=== PATIENT | female | born 1960 | race Caucasian/White ===

== ENCOUNTER 2019-07-18 10:27 | Inpatient (IN) ==
[2019-07-18] MEDS ORDERED: Ondansetron 4 MG/2 ML VIAL IVP PRN (12:44)
[2019-07-18] MEDS ORDERED: Naloxone 0.4 MG/ML INJ IVP PRN ×2 (12:44→12:46)
[2019-07-18] MEDS ORDERED: 0.9 % Sodium Chloride 1,000 ML IVC SCH (12:45)
[2019-07-18] MEDS ORDERED: Potassium Phosphate 44 MEQ in 0.9 % Sodium Chloride 250 ML IVPB PRN (12:58)
[2019-07-18] MEDS ORDERED: Calcium Gluconate 1gm/50mL 1 GM/50 ML BAG IVPB PRN (12:58)
[2019-07-18] MEDS: Thiamine (B-1) 100 MG in 0.9 % Sodium Chloride 50 ML IVPB SCH (14:19)
[2019-07-18 14:25] LABS: BUN/Creatinine Ratio 13 (6-26); Blood Urea Nitrogen 10 mg/dL (6-20); Calcium 8.7 mg/dL (8.6-10.3); Carbon Dioxide 24 mEq/L (23-29); Chloride 73 mEq/L (98-107); Glucose 115 mg/dL (70-105); Osmolality,Calculated 224 (280-300); Potassium 3.7 mEq/L (3.5-5.1); Sodium 107 mEq/L (136-145); eGFR For African Americans > 60 (> 60); eGFR For Non-African Americans > 60 (> 60)
[2019-07-18] MEDS: *HR* Heparin 5,000 UNIT/ML VIAL SQ SCH ×2 (14:32→20:14)
[2019-07-18] MEDS: Folic Acid 1 MG in 0.9 % Sodium Chloride 50 ML IVPB SCH (15:17)
[2019-07-18] MEDS: clonazePAM 0.5 MG TABLET PO SCH ×2 (15:22→20:15)
[2019-07-18 16:07] LABS: Magnesium 1.5 mg/dL (1.6-2.6)
[2019-07-18 16:08] LABS: Creatinine,Urine 39 mg/dL; Sodium, Urine < 10.0 mEq/L
[2019-07-18] MEDS: Ipratropium/Albuterol Neb 3 ML IH SCH ×2 (16:24→21:59)
[2019-07-18] MEDS: Nicotine 21 MG PATCH.TD24 TD SCH (18:33)
[2019-07-18 23:28] LABS: Magnesium 2.3 mg/dL (1.6-2.6); Potassium 3.9 mEq/L (3.5-5.1)
[2019-07-19] MEDS ORDERED: D5% in Water 500 ML IVC SCH ×2 (02:15→06:15)
[2019-07-19 03:15] LABS: Basophils % 0.3 %; Eosinophils # 0.1 K/mcL (0.0-0.6); Hematocrit 30.5 % (35.3-44.9); Hemoglobin 10.7 g/dL (11.5-15.4); Immature Granulocytes % 0.8 % (0-4); Lymphocytes % 13.6 %; Mean Corpuscular HGB Conc 35.1 g/dL (31.6-35.5); Mean Corpuscular Hemoglobin 32.1 pg (28.0-33.3); Mean Corpuscular Volume 91.6 fL (83.0-100.0); Mean Platelet Volume 8.6 fL (9.4-12.4); Monocytes # 0.7 K/mcL (0.0-1.3); Monocytes % 9.7 %; Neutrophils # 5.7 K/mcL (1.6-8.9); Platelet Count 252 K/mcL (140-400); Red Blood Count 3.33 M/mcL (3.82-4.97); Red Cell Distribution Width 12.4 % (11.5-14.5); Segmented Neutrophils % 74.6 %; White Blood Count 7.6 K/mcL (4.3-11.1)
[2019-07-19 03:20] LABS: VBG Ionized Calcium 1.08 mmol/L (1.15-1.35)
[2019-07-19 03:39] LABS: Sodium 116 mEq/L (136-145)
[2019-07-19] MEDS: Ipratropium/Albuterol Neb 3 ML IH SCH ×4 (03:56→22:09)
[2019-07-19 04:17] LABS: BUN/Creatinine Ratio 18 (6-26); Blood Urea Nitrogen 11 mg/dL (6-20); Calcium 8.3 mg/dL (8.6-10.3); Carbon Dioxide 25 mEq/L (23-29); Chloride 88 mEq/L (98-107); Glucose 119 mg/dL (70-105); Osmolality,Calculated 243 (280-300); Phosphorous 3.3 mg/dL (2.7-4.5); Potassium 4.5 mEq/L (3.5-5.1); eGFR For African Americans > 60 (> 60); eGFR For Non-African Americans > 60 (> 60)
[2019-07-19] MEDS: *HR* Heparin 5,000 UNIT/ML VIAL SQ SCH ×3 (04:58→22:40)
[2019-07-19 04:59] LABS: Magnesium 2.2 mg/dL (1.6-2.6)
[2019-07-19] MEDS ORDERED: Perflutren Lipid Microsphere 1.3 ML in 0.9 % Sodium Chloride 8.7 ML IVP ONE (08:39)
[2019-07-19] MEDS ORDERED: lisinopriL 20 MG TABLET PO SCH (09:00)
[2019-07-19] MEDS ORDERED: 0.9 % Sodium Chloride 1,000 ML IVC SCH (09:30)
[2019-07-19] MEDS: Thiamine (B-1) 100 MG in 0.9 % Sodium Chloride 50 ML IVPB SCH (09:33)
[2019-07-19] MEDS: Folic Acid 1 MG in 0.9 % Sodium Chloride 50 ML IVPB SCH (09:34)
[2019-07-19] MEDS: Nicotine 21 MG PATCH.TD24 TD SCH (09:35)
[2019-07-19] MEDS: clonazePAM 0.5 MG TABLET PO SCH ×3 (09:44→20:39)
[2019-07-19 10:28] LABS: Thyroid Stimulating Hormone 0.438 mcIU/mL (0.340-5.600)
[2019-07-19 12:33] LABS: BUN/Creatinine Ratio 17 (6-26); Blood Urea Nitrogen 11 mg/dL (6-20); Calcium 8.2 mg/dL (8.6-10.3); Carbon Dioxide 24 mEq/L (23-29); Chloride 88 mEq/L (98-107); Glucose 119 mg/dL (70-105); Osmolality,Calculated 251 (280-300); Potassium 4.7 mEq/L (3.5-5.1); Sodium 120 mEq/L (136-145); eGFR For African Americans > 60 (> 60); eGFR For Non-African Americans > 60 (> 60)
[2019-07-19 13:15] LABS: Creatinine,Urine 45 mg/dL; Sodium, Urine < 10.0 mEq/L
[2019-07-19] MEDS ORDERED: Thiamine (B-1) 100 MG in 0.9 % Sodium Chloride 50 ML IVPB PRN (16:00)
[2019-07-19] MEDS ORDERED: Folic Acid 1 MG in 0.9 % Sodium Chloride 50 ML IVPB PRN (16:00)
[2019-07-19] MEDS ORDERED: Ondansetron 4 MG/2 ML VIAL IVP PRN (17:44)
[2019-07-19] MEDS ORDERED: Naloxone 0.4 MG/ML INJ IVP PRN (17:44)
[2019-07-19] MEDS ORDERED: D5% in Water 1,000 ML IVC SCH (19:15)
[2019-07-19] MEDS ORDERED: BUDESONIDE IH SCH (21:00)
[2019-07-20] MEDS ORDERED: D5% in Water 500 ML IVC SCH ×2 (00:20→04:14)
[2019-07-20 03:46] LABS: Basophils % 0.3 %; Eosinophils # 0.1 K/mcL (0.0-0.6); Eosinophils % 0.6 %; Hematocrit 26.2 % (35.3-44.9); Immature Granulocytes % 0.9 % (0-4); Lymphocytes # 1.7 K/mcL (0.6-4.6); Lymphocytes % 13.2 %; Mean Corpuscular HGB Conc 34.4 g/dL (31.6-35.5); Mean Corpuscular Hemoglobin 32.1 pg (28.0-33.3); Mean Corpuscular Volume 93.6 fL (83.0-100.0); Mean Platelet Volume 8.7 fL (9.4-12.4); Monocytes # 1.2 K/mcL (0.0-1.3); Monocytes % 9.3 %; Platelet Count 235 K/mcL (140-400); Red Cell Distribution Width 12.8 % (11.5-14.5); Segmented Neutrophils % 75.7 %
[2019-07-20 03:47] LABS: Neutrophils # 9.5 K/mcL (1.6-8.9); White Blood Count 12.6 K/mcL (4.3-11.1)
[2019-07-20 03:52] LABS: Prothrombin Time 11.1 Seconds (9.4-12.1)
[2019-07-20 03:55] LABS: Activated Partial Thrombo Time 30.4 Seconds (26.0-36.0)
[2019-07-20 04:09] LABS: BUN/Creatinine Ratio 21 (6-26); Blood Urea Nitrogen 12 mg/dL (6-20); Carbon Dioxide 25 mEq/L (23-29); Chloride 89 mEq/L (98-107); Glucose 109 mg/dL (70-105); Osmolality,Calculated 250 (280-300); Potassium 4.1 mEq/L (3.5-5.1); Sodium 120 mEq/L (136-145); eGFR For African Americans > 60 (> 60); eGFR For Non-African Americans > 60 (> 60)
[2019-07-20] MEDS: Ipratropium/Albuterol Neb 3 ML IH SCH ×4 (04:33→21:43)
[2019-07-20] MEDS: *HR* Heparin 5,000 UNIT/ML VIAL SQ SCH ×3 (05:57→21:27)
[2019-07-20] MEDS: clonazePAM 0.5 MG TABLET PO SCH ×3 (08:38→21:27)
[2019-07-20] MEDS: Thiamine (B-1) 100 MG TABLET PO SCH (08:38)
[2019-07-20] MEDS: Folic Acid 1 MG TABLET PO SCH (08:39)
[2019-07-20] MEDS: Nicotine 21 MG PATCH.TD24 TD SCH (08:39)
[2019-07-20] MEDS: lisinopriL 20 MG TABLET PO SCH (08:39)
[2019-07-21] MEDS: Ipratropium/Albuterol Neb 3 ML IH SCH ×4 (03:22→22:04)
[2019-07-21 04:28] LABS: Basophils % 0.4 %; Eosinophils # 0.1 K/mcL (0.0-0.6); Eosinophils % 0.9 %; Hematocrit 25.5 % (35.3-44.9); Hemoglobin 8.4 g/dL (11.5-15.4); Lymphocytes # 2.4 K/mcL (0.6-4.6); Lymphocytes % 23.6 %; Mean Corpuscular HGB Conc 32.9 g/dL (31.6-35.5); Mean Corpuscular Hemoglobin 31.7 pg (28.0-33.3); Mean Corpuscular Volume 96.2 fL (83.0-100.0); Mean Platelet Volume 8.5 fL (9.4-12.4); Monocytes % 9.6 %; Neutrophils # 6.7 K/mcL (1.6-8.9); Platelet Count 236 K/mcL (140-400); Red Blood Count 2.65 M/mcL (3.82-4.97); Red Cell Distribution Width 13.2 % (11.5-14.5); Segmented Neutrophils % 64.5 %; White Blood Count 10.3 K/mcL (4.3-11.1)
[2019-07-21 04:45] LABS: Magnesium 1.8 mg/dL (1.6-2.6); Phosphorous 4.2 mg/dL (2.7-4.5)
[2019-07-21 04:47] LABS: BUN/Creatinine Ratio 17 (6-26); Blood Urea Nitrogen 10 mg/dL (6-20); Calcium 8.5 mg/dL (8.6-10.3); Carbon Dioxide 25 mEq/L (23-29); Chloride 92 mEq/L (98-107); Glucose 118 mg/dL (70-105); Osmolality,Calculated 256 (280-300); Potassium 4.4 mEq/L (3.5-5.1); Sodium 123 mEq/L (136-145); eGFR For African Americans > 60 (> 60); eGFR For Non-African Americans > 60 (> 60)
[2019-07-21] MEDS: *HR* Heparin 5,000 UNIT/ML VIAL SQ SCH ×3 (05:26→22:08)
[2019-07-21] MEDS: Folic Acid 1 MG TABLET PO SCH (09:43)
[2019-07-21] MEDS: Nicotine 21 MG PATCH.TD24 TD SCH (09:43)
[2019-07-21] MEDS: Thiamine (B-1) 100 MG TABLET PO SCH (09:44)
[2019-07-21] MEDS: clonazePAM 0.5 MG TABLET PO SCH ×3 (09:44→22:09)
[2019-07-21] MEDS: lisinopriL 20 MG TABLET PO SCH (09:44)
[2019-07-21] MEDS: 0.9 % Sodium Chloride 1,000 ML IVC SCH (13:18)
[2019-07-21] MEDS: Cholecalciferol (D-3) 1,000 UNIT (25MCG) TABLET PO SCH (16:49)
[2019-07-22] MEDS: 0.9 % Sodium Chloride 1,000 ML IVC SCH ×2 (02:35→16:47)
[2019-07-22] MEDS: Ipratropium/Albuterol Neb 3 ML IH SCH ×4 (04:08→22:29)
[2019-07-22 04:41] LABS: BUN/Creatinine Ratio 18 (6-26); Blood Urea Nitrogen 10 mg/dL (6-20); Calcium 7.9 mg/dL (8.6-10.3); Carbon Dioxide 23 mEq/L (23-29); Chloride 97 mEq/L (98-107); Glucose 98 mg/dL (70-105); Osmolality,Calculated 261 (280-300); Potassium 4.2 mEq/L (3.5-5.1); Sodium 126 mEq/L (136-145); eGFR For African Americans > 60 (> 60); eGFR For Non-African Americans > 60 (> 60)
[2019-07-22] MEDS: *HR* Heparin 5,000 UNIT/ML VIAL SQ SCH ×3 (05:28→20:20)
[2019-07-22] MEDS ORDERED: 0.9 % Sodium Chloride 500 ML IVC ONE (08:58)
[2019-07-22] MEDS: clonazePAM 0.5 MG TABLET PO SCH ×3 (09:22→20:20)
[2019-07-22] MEDS: Cholecalciferol (D-3) 1,000 UNIT (25MCG) TABLET PO SCH (09:22)
[2019-07-22] MEDS: Thiamine (B-1) 100 MG TABLET PO SCH (09:22)
[2019-07-22] MEDS: lisinopriL 20 MG TABLET PO SCH (09:22)
[2019-07-22] MEDS: Nicotine 21 MG PATCH.TD24 TD SCH (09:23)
[2019-07-22] MEDS: Folic Acid 1 MG TABLET PO SCH (09:23)
[2019-07-22] MEDS: Sennosides/Docusate Sodium TABLET PO SCH ×2 (10:10→20:20)
[2019-07-23] MEDS: Ipratropium/Albuterol Neb 3 ML IH SCH ×4 (03:27→22:13)
[2019-07-23] MEDS: 0.9 % Sodium Chloride 1,000 ML IVC SCH ×2 (03:36→20:12)
[2019-07-23] MEDS: *HR* Heparin 5,000 UNIT/ML VIAL SQ SCH ×2 (04:55→13:04)
[2019-07-23 05:32] LABS: Mean Corpuscular Hemoglobin 31.6 pg (28.0-33.3); Mean Corpuscular Volume 98.8 fL (83.0-100.0); Mean Platelet Volume 8.5 fL (9.4-12.4); Platelet Count 273 K/mcL (140-400); Red Blood Count 2.53 M/mcL (3.82-4.97); Red Cell Distribution Width 13.1 % (11.5-14.5); White Blood Count 6.5 K/mcL (4.3-11.1)
[2019-07-23 05:49] LABS: BUN/Creatinine Ratio 15 (6-26); Blood Urea Nitrogen 7 mg/dL (6-20); Carbon Dioxide 23 mEq/L (23-29); Chloride 101 mEq/L (98-107); Glucose 113 mg/dL (70-105); Osmolality,Calculated 267 (280-300); Potassium 3.9 mEq/L (3.5-5.1); Sodium 129 mEq/L (136-145); eGFR For African Americans > 60 (> 60); eGFR For Non-African Americans > 60 (> 60)
[2019-07-23] MEDS ORDERED: 0.9 % Sodium Chloride 1,000 ML IVC SCH (06:47)
[2019-07-23] MEDS: lisinopriL 20 MG TABLET PO SCH (08:20)
[2019-07-23] MEDS: Folic Acid 1 MG TABLET PO SCH (08:20)
[2019-07-23] MEDS: Sennosides/Docusate Sodium TABLET PO SCH ×2 (08:20→20:12)
[2019-07-23] MEDS: Nicotine 21 MG PATCH.TD24 TD SCH (08:20)
[2019-07-23] MEDS: clonazePAM 0.5 MG TABLET PO SCH ×3 (08:20→20:12)
[2019-07-23] MEDS: Cholecalciferol (D-3) 1,000 UNIT (25MCG) TABLET PO SCH (08:20)
[2019-07-23] MEDS: Thiamine (B-1) 100 MG TABLET PO SCH (08:20)
[2019-07-23] MEDS ORDERED: Tolvaptan 15 MG TABLET PO ONE (09:16)
[2019-07-23] MEDS ORDERED: polyethylene glycoL 3350 17 GM POWD.PACK PO PRN ×2 (12:07→19:46)
[2019-07-23] MEDS ORDERED: Ethanol\\Acetic Acid\\Na Ace\\Ben 1,000 ML IRRIG.SOLN IR ONE (16:18)
[2019-07-23] MEDS ORDERED: *HR* Succinylcholine 200 MG/10 ML VIAL IVP ONE (16:29)
[2019-07-23] MEDS ORDERED: *HR* FentaNYL (PF) 100 MCG/2 ML VIAL ONE ×2 (16:29→17:02)
[2019-07-23] MEDS ORDERED: Lidocaine HCL 4 ML Topical Solution (Laryng-O-Jet Kit Sterile Pak) TP ONE (16:29)
[2019-07-23] MEDS ORDERED: *HR* Propofol 200 MG/20 ML VIAL IVP ONE (16:29)
[2019-07-23] MEDS ORDERED: Dexamethasone 4 MG/ML VIAL ONE (16:29)
[2019-07-23] MEDS ORDERED: Ondansetron 4 MG/2 ML VIAL ONE (16:29)
[2019-07-23] MEDS ORDERED: Lidocaine -MPF 2% 2 ML VIAL ONE (16:29)
[2019-07-23] MEDS ORDERED: ceFAZolin 2,000 MG in 0.9 % Sodium Chloride 100 ML IVPB ONE (16:45)
[2019-07-23] MEDS ORDERED: *HR* PHENYLEPHRINE 1,000 MCG/10 ML SYRINGE IVP ONE (17:03)
[2019-07-23] MEDS ORDERED: *HR* HYDROMORPHONE 2 MG/ML VIAL ONE (17:46)
[2019-07-23] MEDS ORDERED: *HR* OxyCODONE Immed Rel 5 MG TABLET PO PRN (18:11)
[2019-07-23] MEDS ORDERED: Ondansetron 4 MG/2 ML VIAL IVP ONE (18:11)
[2019-07-23] MEDS: *HR* HYDROmorphone PF 0.5 MG/0.5 ML SYRINGE IVP PRN ×2 (18:25→18:35)
[2019-07-23] MEDS ORDERED: *HR* Meperidine 25 MG/ML SYRINGE IVP ONE (18:36)
[2019-07-23] MEDS: *HR* Meperidine 25 MG/ML SYRINGE IVP PRN ×2 (18:45→19:00)
[2019-07-23] MEDS ORDERED: *HR* Labetalol 20 MG/4 ML SYRINGE IVP ONE ×2 (19:10→19:14)
[2019-07-23] MEDS ORDERED: Ringers Solution, Lactated 1,000 ML IVC SCH (19:46)
[2019-07-23] MEDS ORDERED: MOM Conc 10 ML UD.LIQ PO PRN (19:46)
[2019-07-23] MEDS ORDERED: Naloxone 0.4 MG/ML INJ IVP PRN (19:46)
[2019-07-23] MEDS ORDERED: Sennosides 8.6 MG TABLET PO PRN (19:46)
[2019-07-23] MEDS ORDERED: Ondansetron 4 MG/2 ML VIAL IVP PRN ×2 (19:46)
[2019-07-23] MEDS: Clindamycin 900 MG/50 ML 900 MG/50 ML IV.SOLN IVPB SCH (23:32)
[2019-07-24 02:42] VITALS: BP 159/95
[2019-07-24] MEDS: Ipratropium/Albuterol Neb 3 ML IH SCH ×2 (03:32→10:08)
[2019-07-24 05:36] LABS: Hematocrit 24.3 % (35.3-44.9); Hemoglobin 7.8 g/dL (11.5-15.4)
[2019-07-24 05:51] LABS: BUN/Creatinine Ratio 12 (6-26); Blood Urea Nitrogen 6 mg/dL (6-20); Calcium 8.1 mg/dL (8.6-10.3); Carbon Dioxide 22 mEq/L (23-29); Chloride 103 mEq/L (98-107); Glucose 115 mg/dL (70-105); Osmolality,Calculated 275 (280-300); Potassium 3.9 mEq/L (3.5-5.1); Sodium 133 mEq/L (136-145); eGFR For African Americans > 60 (> 60); eGFR For Non-African Americans > 60 (> 60)
[2019-07-24] MEDS: 0.9 % Sodium Chloride 1,000 ML IVC SCH (06:20)
[2019-07-24] MEDS: clonazePAM 0.5 MG TABLET PO SCH (07:56)
[2019-07-24] MEDS: Sennosides/Docusate Sodium TABLET PO SCH (07:57)
[2019-07-24] MEDS: Clindamycin 900 MG/50 ML 900 MG/50 ML IV.SOLN IVPB SCH (08:00)
[2019-07-24] MEDS ORDERED: Thiamine (B-1) 100 MG TABLET PO SCH (09:00)
[2019-07-24] MEDS ORDERED: lisinopriL 20 MG TABLET PO SCH (09:00)
[2019-07-24] MEDS ORDERED: Folic Acid 1 MG TABLET PO SCH (09:00)
[2019-07-24] MEDS ORDERED: Cholecalciferol (D-3) 1,000 UNIT (25MCG) TABLET PO SCH (09:00)
[2019-07-24] MEDS ORDERED: Nicotine 21 MG PATCH.TD24 TD SCH (09:00)
== END 2019-07-24 10:12 | disposition home or self-care (01) | DRG 951 ==
LOC: ICNU 12:50 → SUATTDRO 12:50 → 3NENU 07-19 17:57
PROVIDERS: ADMIT Internal Medicine; ATTEND Internal Medicine